=== PATIENT | male | born 1980 ===

== ENCOUNTER 2016-10-21 11:15 | Emergency (ER) | payer OTHER ==
[2016-10-21 11:26] VITALS: BP 125/69
--- NOTE | 2016-10-21 11:27 | UC ---
Throat Pain/Nasal [place] HPI - HPI Summary HPI Summary: sinus congestion for 3-4 days seemed to get worse after flying--no fevers - History of Current Complaint Chief Complaint: UCRespiratory Stated Complaint: COUGH Time Seen by Provider: 10/21/16 11:25 Hx Obtained From: Patient Onset/Duration: Gradual Onset, Lasting Days - 3-4, Still Present Severity: Mild Pain Intensity: 4 Pain Scale Used: 0-10 Numeric Cough: Nonproductive Associated Signs & Symptoms: Positive: Sinus Discomfort, Nasal Discharge - Allergies/Home Medications Allergies/Adverse Reactions: Allergies Allergy/AdvReac Type Severity Reaction Status Date / Time No Known Allergies Allergy Verified 10/21/16 11:19 Home Medications: Home Medications GuaiFENesin DM* [Robitussin DM*] 10/21/16 [History] PMH/Surg Hx/FS Hx/Imm Hx Previously Healthy: No Endocrine History Of: Denies: Diabetes, Thyroid Disease Cardiovascular History Of: Denies: Cardiac Disorders, Hypertension Respiratory History Of: Denies: COPD, Asthma GI/ History Of: Denies: Ulcer Psychological History Of: Reports: Anxiety, Depression - Surgical History Surgical History: None - Family History Known Family History: Positive: Hypertension - Social History Occupation: Employed Full-time Lives: With Family Alcohol Use: Occasionally Substance Use Type: None Smoking Status (MU): Former Smoker When Did the Patient Quit Smoking/Using Tobacco: 2005 Review of Systems Constitutional: Fatigue Skin: Negative Eyes: Negative ENT: Ear Ache, Nasal Discharge Respiratory: Cough Cardiovascular: Negative Gastrointestinal: Negative Genitourinary: Negative Motor: Negative Neurovascular: Negative Musculoskeletal: Negative Neurological: Headache - frontal sinus Psychological: Negative All Other Systems Reviewed And Are Negative: Yes Physical Exam Triage Information Reviewed: Yes Appearance: Well-Nourished, Ill-Appearing - mild, Pain Distress - mild Vital Signs: Initial Vital Signs Temp 99.6 F 10/21/16 11:20 Pulse 95 10/21/16 11:20 Resp 18 10/21/16 11:20 BP 125/69 10/21/16 11:20 Pulse Ox 99 10/21/16 11:20 Vital Signs Reviewed: Yes Eye Exam: Normal Eyes: Positive: Conjunctiva Clear ENT: Positive: Hearing grossly normal, Pharynx normal, Nasal congestion, Nasal drainage, TMs normal. Negative: Tonsillar swelling, Tonsillar exudate, Trismus , Muffled/hoarse voice Dental Exam: Normal Neck exam: Normal Neck: Positive: Supple, Nontender, No Lymphadenopathy Respiratory Exam: Normal Respiratory: Positive: Chest non-tender, Lungs clear, Normal breath sounds, No respiratory distress, No accessory muscle use Cardiovascular Exam: Normal Cardiovascular: Positive: RRR, No Murmur, Pulses Normal, Brisk Capillary Refill Musculoskeletal Exam: Normal Musculoskeletal: Positive: Strength Intact, ROM Intact, No Edema Neurological Exam: Normal Neurological: Positive: Alert, Muscle Tone Normal Psychological Exam: Normal Skin Exam: Normal Throat Pain/Nasal Course/Dx - Course Assessment/Plan: flonase, muscinex with decongestant, aleeve, add antibiodic if no improvment in 6 days, increase fluids, re-check prn - Differential Dx/Diagnosis Differential Diagnosis/HQI/PQRI: Influenza, Pharyngitis, Sinusitis, URI Provider Diagnoses: Rhinosinusitis Discharge - Discharge Plan Condition: Stable Disposition: HOME Prescriptions: Amoxicillin/Clavulanate TAB* [Augmentin TAB 875*] 875 mg PO BID #20 tab Fluticasone NASAL SPRAY 50MCG* [Flonase NASAL SPRAY 50MCG*] 2 spray BOTH NARES DAILY #1 btl Patient Education Materials: Rhinosinusitis (ED), How to Use Nasal [place] (ED) Referrals: Wiley Ramon MD [Primary Care Provider] - If Needed
== END 2016-10-21 11:38 | disposition home or self-care (01) ==
LOC: UCEAST 11:15
DX: J32.9 Chronic sinusitis, unspecified (principal); Z87.891 Personal history of nicotine dependence
CPT/HCPCS: 99212; G0463

== ENCOUNTER 2019-10-05 16:46 | Emergency (ER) | payer OTHER ==
[2019-10-05 17:05] VITALS: BP 119/79
--- NOTE | 2019-10-05 17:23 | UC ---
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 States he is noted some difficulty fully closing his left eye as well as some mild drooping to the left side of his face. 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 States his first episode was in approximately 2005 and he was seen at this facility in 2016 for a recurrence as well. Patient started himself on prednisone 50 mg daily at the onset of symptoms however has no more medication. Denies fever, chills, headache, visual disturbances, dizziness, slurred or difficulty speaking, weakness, numbness, or tingling of the arms and legs. - History of Current Complaint Chief Complaint: UCEye Stated Complaint: EYE ISSUE Time Seen by Provider: 10/05/19 17:15 Hx Obtained From: Patient Pain Intensity: 3 - Allergy/Home Medications Allergies/Adverse Reactions: Allergies Allergy/AdvReac Type Severity Reaction Status Date / Time No Known Allergies Allergy Verified 10/05/19 17:05 Home Medications: Home Medications Ibuprofen TAB* [Motrin TAB* 400 MG] 400 mg PO DAILY 10/05/19 [History Confirmed 10/05/19] PMH/Surg Hx/FS Hx/Imm Hx - Additional Past Medical History Additional PMH: Bunn's Palsy Respiratory History: Asthma - Surgical History Surgical History: None - Family History Known Family History: Positive: Hypertension, Other Family History: NON CONTRIBUTORY; HLD - Social History Occupation: Employed Full-time Lives: With Family Alcohol Use: Occasionally Substance Use Type: None Smoking Status (MU): Former Smoker When Did the Patient Quit Smoking/Using Tobacco: 2005 Review of Systems All Other Systems Reviewed And Are Negative: Yes Constitutional: Negative: Fever, Chills Skin: Negative: Rash Eyes: Negative: Blurred Vision, Diplopia, Photophobia ENT: Positive: Negative Respiratory: Positive: Negative Cardiovascular: Positive: Negative Gastrointestinal: Positive: Negative Genitourinary: Positive: Negative Musculoskeletal: Positive: Negative Neurological: Negative: Headache, Weakness, Paresthesia, Numbness Physical Exam - Summary Physical Exam Summary: GENERAL APPEARANCE: Well developed, well nourished, alert and cooperative, and appears to be in no acute distress. HEAD: Flattening of the nasolabial fold, mild drooping of the left upper lip. EYES: Patient able to close both eyes however there is some inability to resist opening of the left eye. Conjunctiva clear. No drainage. PERRL, EOM intact. Vision is grossly intact. EARS: External auditory canals and tympanic membranes clear, hearing grossly intact. NOSE: No nasal discharge. THROAT: Pharynx normal. No tonsilar inflammation, swelling, exudate, or lesions. Uvula midline. NECK: Neck supple, non-tender without lymphadenopathy. CARDIAC: Normal S1 and S2. No S3, S4 or murmurs. Rhythm is regular. There is no peripheral edema, cyanosis or pallor. Extremities are warm and well perfused. Capillary refill is less than 2 seconds. Peripheral pulses intact. LUNGS: Clear to auscultation without rales, rhonchi, wheezing or diminished breath sounds. ABDOMEN: Positive bowel sounds. Soft, nondistended, nontender. No guarding or rebound. No masses or hepatosplenomegally. MUSKULOSKELETAL: ROM intact to all extremities. No joint erythema or tenderness. Normal muscular development. Normal gait. NEUROLOGICAL: Strength and sensation symmetric and intact throughout. Reflexes 2 + throughout. SKIN: Skin normal color, texture and turgor with no lesions or eruptions. 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 States he is noted some difficulty fully closing his left eye as well as some mild drooping to the left side of his face. 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 States his first episode was in approximately 2005 and he was seen at this facility in 2016 for a recurrence as well. Patient started himself on prednisone 50 mg daily at the onset of symptoms however has no more medication. Denies fever, chills, headache, visual disturbances, dizziness, slurred or difficulty speaking, weakness, numbness, or tingling of the arms and legs. Afebrile. Vital signs stable. Patient able to close both eyes however there is some inability to resist opening of the left eye, there is flattening of the nasolabial fold, mild drooping of the left upper lip, otherwise neurologically intact with unremarkable exam. Discussed with patient that his symptoms are consistent with a reoccurence of Bunn's palsy and am recommending that we continue prednisone 50 mg daily for another 5 days. We also discussed that in the past he has been treated with and antiviral however this was with more severe symptoms. We discussed the risks and benefits of treating with an antiviral especially considering that his symptoms are mild however patient would like to start at this time. Will give him valocyclovir 1000 mg TID x 7 days. He is to follow up with his PCP in 3-5 days if symptoms are not improving. Anticipatory guidance and warning symptoms discussed with patient. Verbalizes understanding and agrees with POC. - Diagnoses Provider Diagnosis: Bunn's palsy Discharge ED - Sign-Out/Discharge Documenting (check all that apply): Patient Departure All imaging exams completed and their final reports reviewed: No Studies - Discharge Plan Condition: Stable Disposition: HOME Prescriptions: predniSONE TAB* [Deltasone TAB*] 50 mg PO DAILY 5 Days #5 tab Valacyclovir HCl [Valtrex] 1,000 mg PO TID 7 Days #21 tablet Patient Education Materials: Bunn Palsy (ED) Referrals: Wiley Ramon MD [Primary Care Provider] - 3 Days Additional Instructions: Your history and physical are consistent with a mild Bunn's palsy. Continue taking prednisone 50 mg daily for the next 5 days. Start valacyclovir 1000 mg 3 times a day for 7 days. Follow-up with your primary care provider in 3-5 days if symptoms are not improving. Seek immediate medical attention in the emergency room if you develop a severe headache, slurred or difficulty speaking, visual disturbances, confusion, dizziness, numbness, tingling, or weakness the arms and legs, or any worsening of symptoms. - Billing Disposition and Condition Condition: STABLE Disposition: Home - Attestation Statements Provider Attestation: Per institutional requirements, I have reviewed the chart, however, I was not consulted specifically or made aware of this patient by the midlevel provider. I did not personally evaluate, interact with , or disposition this patient.
== END 2019-10-05 17:40 | disposition home or self-care (01) ==
LOC: UCEAST 16:46
DX: G51.0 Bell's palsy (principal); Z87.891 Personal history of nicotine dependence
CPT/HCPCS: 99212; G0463